=== PATIENT | male | born 1945 | race Caucasian/White ===

== ENCOUNTER 2019-11-05 06:49 | Outpatient (CLI) | payer MEDICARE, BC, SELFPAY ==
--- NOTE | 2019-11-05 07:25 | ECG_ITS ---
Measurements Intervals [place] Rate: 61 P: 16 ID: 154 QRS: 5 QRSD: 114 T: 112 QT: 439 QTc: 443 Interpretive Statements SINUS RHYTHM INTRAVENTRICULAR CONDUCTION DELAY DELAYED PRECORDIAL R/S TRANSITION ST-T WAVE ABNORMALITY IN LATERAL LEADS- CONSIDER ISCHEMIA ABNORMAL ECG Electronically Signed On 11-05-2019 7:36:11 CDT by Chavo Bucio D.O.
[2019-11-05 07:32] LABS: Blood Urea Nitrogen 21 mg/dL (9-20); Calcium 9.2 mg/dL (8.4-10.2); Carbon Dioxide 26 mmol/L (22-30); Chloride 106 mmol/L (98-107); Estimated Glomerular Filt Rate > 60; Glucose 110 mg/dL (75-110); Phenytoin Dilantin 4 ug/mL (10-20); Sodium 137 mmol/L (137-145)
== END 2019-11-05 06:50 | disposition home or self-care (01) ==
PROVIDERS: Visit Provider Anesthesiology
DX: G40.909 Epilepsy, unspecified, not intractable, without status epilepticus (principal); T42.0X5A Adverse effect of hydantoin derivatives, initial encounter; I10 Essential (primary) hypertension
CPT/HCPCS: 36415; 80048; 80185; 93005

== ENCOUNTER 2019-11-08 02:13 | Day surgery (SDC) | payer MEDICARE, BC, SELFPAY ==
--- NOTE | 2019-11-01 15:31 | P.HP_ITS ---
History of Present Illness History of Present Illness Consent: Risks, benefits, and alternatives have been discussed and questions answered. Patient agrees to proceed with procedure. Chief complaint: prostate CA Narrative: Juve De Leon is a 74 year old male, who's a patient of my partner's Dr. 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 He presents today for transrectal ultrasound with transperineal placement of SpaceOAR. Pt. aware of risks of this procedure including, but not limited to, rectal injury, urinary tract infection with possible sepsis or septic shock, hematuria and inability to deliver the SpaceOAR. He also aware there is no alternative procedure to accomplish the same ends at this time. Review of Systems Constitutional: Constitutional: Denies chills, Denies fatigue, Denies fever(s) and Denies headache(s) Eyes: Eyes: Denies blurry vision ENT: Denies vertigo, Denies dizziness, Denies headache(s) and Denies sore throat Cardiovascular: Cardiovascular: Denies chest pain, Denies syncope, Denies lightheadedness, Denies palpitations, Denies dyspnea and Denies dyspnea on exertion Respiratory: Respiratory: Denies hemoptysis, Denies dyspnea and Denies dyspnea on exertion Gastrointestinal: Gastrointestinal: Denies melena, Denies bloating, Denies hematochezia, Denies change in bowel habits, Denies change in stool character, Denies constipation, Denies diarrhea and Denies vomiting Genitourinary: Genitourinary: Denies hematuria, Denies dysuria, Denies testicular pain, Denies urinary frequency, Denies urinary hesitancy and Denies urinary urgency Integumentary/Breasts: Skin/Breast: Denies pruritus, Denies lesions and Denies rash Neurologic: Denies confusion, Denies vertigo, Denies dizziness, Denies syncope and Denies headache(s) Psychiatric: Psychiatric: Denies anxiety, Denies change in appetite and Denies confusion Endocrine: Endocrine: Denies fatigue and Denies palpitations Exam Const: General: no acute distress Resp: Effort & Inspection: normal respiratory effort GI: Inspection: non-distended GI Palp: No abdominal tenderness and No Guarding due to palpation present (GI) Auscultation: normal bowel sounds Assessment and Plan Assessment and plan (1) Prostate cancer: Code(s): C61 - Malignant neoplasm of prostate Status: Acute Additional Plan * Transrectal ultrasound with transperineal placement of SpaceOAR.
[2019-11-02 17:11] VITALS: BMI 32.0
[2019-11-02 18:00] VITALS: BMI 32.0
--- NOTE | 2019-11-08 07:33 | WPDHPUPDATE1 ---
History and Physical Update Update Date/Time: 11/08/19 07:33 History and Physical has been reviewed, including an updated exam of the patient. There are NO changes in the patient's condition. Risks, benefits, and alternatives have been discussed and questions answered. Patient agrees to proceed with procedure.
[2019-11-08 10:58] VITALS: BP 118/74; PULSE 65; RESP 20; TEMP 36.1; O2SAT 96
[2019-11-08] MEDS: LACTATED RINGERS 1,000 ML 30 ML IV CONT (11:15)
--- NOTE | 2019-11-08 11:42 | SUR.PREOP ---
voided per urinal
--- NOTE | 2019-11-08 13:20 | WPDANESEPPF ---
Anes - Initial Pre Proc Eval Procedure: Operation Date: 11/08/19 13:00 Proposed Procedures p Insertion SpaceOAR Hydrogel System - Keith Hearn MD Date/Time: 11/08/19 13:20 Surgeon: Keith Hearn MD Pre Op Diagnosis: prostate CA Patient Data Age: 74 Gender: M Height: 6 ft Weight: 107.8 kg Last Vital Signs Temp 36.1 C L 11/08/19 10:58 Pulse 65 11/08/19 10:58 Resp 20 11/08/19 10:58 BP 118/74 11/08/19 10:58 Pulse Ox 96 11/08/19 10:58 Allergies Allergy/AdvReac Type Severity Reaction Status Date / Time No Known Allergies Allergy Verified 11/08/19 11:22 Home Medications Medication Instructions Recorded Confirmed Type albuterol sulfate 2 puff INHALATION QID PRN 11/02/19 11/02/19 History apalutamide [Erleada] 240 mg PO DAILY 11/02/19 11/08/19 History carvedilol 25 mg PO BID 11/02/19 11/08/19 History escitalopram oxalate 10 mg PO DAILY 11/02/19 11/08/19 History leuprolide (6 month) [Eligard (6 45 mg SUBCUT [id number] 11/02/19 11/02/19 History month)] levothyroxine [Synthroid] 50 mcg PO DAILY 11/02/19 11/08/19 History lisinopril 30 mg PO DAILY 11/02/19 11/08/19 History lorazepam 1 mg PO PRN PRN 11/02/19 11/08/19 History phenytoin 50 mg PO DAILY 11/02/19 11/02/19 History phenytoin sodium extended 100 mg PO DAILY 11/02/19 11/02/19 History potassium chloride 20 meq PO BID 11/02/19 11/02/19 History Patient hx anesthesia problems: post op nausea/vomiting Family hx anesthesia problems: none PMFSH Past Medical History Medical History Cardiac defibrillator in place Cardiomyopathy Diabetes Social History Social History Gender identity (if verbalized by the patient): Male Anes - Eval Final PreProcedure Day of Procedure 11/08/19 13:20 Patient weight: obese Heart: regular rate and rhythm Lungs: clear to auscultation Airway: Mallampati scale class II Neurological: other (alert) Last oral intake: >/= 8 hours ASA classification: IV Emergent: no Anesthetic plan: proceed Anesthesia type and monitoring: general GIVS and standard monitoring Informed Consent: The patient's anesthetic plan and its attendant risks and benefits were discussed with the patient/family/POA. Questions were solicited and answers provided to the satisfaction of the patient/family/POA.
[2019-11-08] MEDS: ceFAZolin 2 GM/D5W 50 ML 2 GM/50 ML BAG IVPB (13:30)
--- NOTE | 2019-11-08 13:56 | PM.PROC ---
Procedure Note - Detailed Date of procedure: 11/08/19 Pre-op diagnosis: prostate CA Post-op diagnosis: same Procedure performed: Placement of SpaceOAR Description of procedure: This patient has been diagnosed with prostate cancer. Patient has met with a radiation oncologist who has prescribed a course of radiation for treatment of the malignancy. Please refer to the Radiation Oncologist's note for radiation method, dose, number of fractions. After discussing with the radiation oncologist and the patient, it has been agreed upon to proceed with SpaceOAR placement. The purpose of SpaceOAR is to reduce rectal irradiation during radiation therapy by placing an absorbable polyethylene glycol (PEG) hydrogel (SpaceOAR) into perirectal fat space, thereby pushing the rectum away from the prostate. Prior to the procedure, a timeout was performed confirming the patient's identity and planned the procedure. Anesthesia was induced without complication. Antibiotics were administered prophylactically, and the patient completed an enema at home prior to the procedure. The patient was positioned in the dorsal lithotomy position. A transrectal ultrasound probe was inserted per rectum with clear visualization of the prostatic base and apex. SpaceOAR hydrogel was prepared as described in the physical therapy aide?s 'Instructions For Use'. Under transrectal ultrasound guidance, a 15 cm 18G needle was inserted, transperineal, through the rectourethralis muscle and the needle tip advanced into the perirectal fat posterior to the prostate. The needle position, and downward bevel, were confirmed in both sagittal and axial dixon. 3-5cc of Sterile Saline was used to hydro-dissect the space between the Denonvilliers? fascia and anterior rectal wall. Aspiration did not yield any bleeding. With the needle tip at mid gland, the axial field was viewed to confirm the needle was not in the rectal wall -- movement of the needle tip without corresponding movement of the rectal wall confirmed perirectal placement. The assembled SpaceOAR delivery system was then attached to the 18G needle. Under ultrasound guidance in the sagittal plane, a smooth, continuous injection technique was used to dispense all 10cc of the SpaceOAR hydrogel into the space between the prostate and rectum. Optimal visualization of the needle during hydrogel administration was maintained at all times. An axial measurement of the space between the prostate (mid gland) and rectum immediately post-SpaceOAR injection was noted and measured [8.7mm]. No suspected penetration or compromise of the rectal wall occurred. Anesthesia: GLMA Surgeon: Keith Hearn MD Estimated blood loss (mL): 0 Urine output (mL): 0 Drains: No Packing: No Pathology: none sent Complications: No immediate complications Condition: stable Disposition: PACU
[2019-11-08 14:00] VITALS: BP 174/87; PULSE 60; RESP 10; TEMP 37.1; O2SAT 99
[2019-11-08 14:15] VITALS: BP 174/77; PULSE 63; RESP 16; O2SAT 99
[2019-11-08 14:30] VITALS: BP 161/72; PULSE 62; RESP 12; O2SAT 98
[2019-11-08 15:00] VITALS: BP 171/76; PULSE 53
[2019-11-08 15:30] VITALS: BP 173/77; PULSE 47
--- NOTE | 2019-11-08 15:31 | SUR.PHASEII ---
1520: Anesthesia notified about BP and doesn't want to treat at this time since patient is asymptomatic.
== END 2019-11-08 15:48 | disposition home or self-care (01) ==
PROVIDERS: PCP Family Medicine; Visit Provider Urology
PROC: (CPT 55874; principal; 2019-11-08 13:00)
DX: C61 Malignant neoplasm of prostate (principal); I42.9 Cardiomyopathy, unspecified; E11.9 Type 2 diabetes mellitus without complications; Z95.810 Presence of automatic (implantable) cardiac defibrillator; E66.9 Obesity, unspecified; Z68.32 Body mass index [BMI] 32.0-32.9, adult
CPT/HCPCS: 55874; A9270; J0690; J2405; J2704; J3010; J7120